=== PATIENT | male | born 1960 | race Asian ===

== ENCOUNTER 2023-01-28 14:23 | Emergency (ER) | payer MEDICARE, MEDICAID ==
[~2023-01-28] VITALS: Ht 170.2 cm; Wt 65.0 kg
[~2023-01-28 14:23] MED LIST: LINE600T14 MT
[2023-01-28] MEDS ORDERED: HYDROCODONE/ACETAMINOPHEN 5/325MG TABLET PO ONE (15:15)
[2023-01-28] MEDS ORDERED: HYDR-4001 MT (17:04)
[2023-01-28 17:41] VITALS: BP 122/78
== END 2023-01-28 17:44 | disposition home or self-care (01) ==
LOC: ER 15:37
DX: S42.292A Other displaced fracture of upper end of left humerus, initial encounter for closed fracture (principal); F41.9 Anxiety disorder, unspecified; E78.00 Pure hypercholesterolemia, unspecified; I10 Essential (primary) hypertension; F20.9 Schizophrenia, unspecified; G20 Parkinson's disease; W01.0XXA Fall on same level from slipping, tripping and stumbling without subsequent striking against object, initial encounter; Y93.89 Activity, other specified; Y92.89 Other specified places as the place of occurrence of the external cause; Y99.8 Other external cause status
CPT/HCPCS: 73030; 73060; 73090; 99284; A4565

== ENCOUNTER 2023-04-29 19:49 | Emergency (ER) | payer MEDICARE, MEDICAID ==
[~2023-04-29] VITALS: Ht 167.6 cm; Wt 62.0 kg
[~2023-04-29 19:49] MED LIST changes: +HYDR-4001 MT
[2023-04-29 20:08] VITALS: O2SAT 99
[2023-04-29] MEDS ORDERED: IBUPROFEN 600MG TABLET PO ONE (21:45)
[2023-04-29 22:45] VITALS: BP 140/80; PULSE 76; RESP 17; TEMP 98.6
== END 2023-04-29 22:53 | disposition home or self-care (01) ==
LOC: ER 19:49
DX: S42.001A Fracture of unspecified part of right clavicle, initial encounter for closed fracture (principal); F41.9 Anxiety disorder, unspecified; E78.00 Pure hypercholesterolemia, unspecified; I10 Essential (primary) hypertension; F20.9 Schizophrenia, unspecified; G89.11 Acute pain due to trauma; W18.39XA Other fall on same level, initial encounter; Y93.89 Activity, other specified; Y92.89 Other specified places as the place of occurrence of the external cause; Y99.8 Other external cause status
CPT/HCPCS: 71101; 73030; 99284; A4565